=== PATIENT | female | born 1970 | race Caucasian/White ===

== ENCOUNTER 2019-10-01 21:37 | Emergency (ER) | payer MEDICAID ==
[~2019-10-01] VITALS: Ht 167.6 cm; Wt 77.6 kg
--- NOTE | 2019-10-01 23:04 | NUR ---
CALLED FOR TRIAGE NO ANSWER
--- NOTE | 2019-10-02 00:01 | NUR ---
PT AAOX4. BIBS FOR C/O SI W/ PLAN TO CUT HER WRIST, PLACED IN BED 11, ON MONITOR AND PULSE OX. VSS. PLACED IN GOWN. BELONIGNS PLACED IN LOCKER. 1:1 SITTER AT BEDSIDE. NO ACUTE DISTRESS NOTED.
[2019-10-02 00:13] LABS: APPEARANCE,URINE Clear (CLEAR); BILIRUBIN,URINE Negative (NEGATIVE); BLOOD, URINE Negative Ery/uL (NEGATIVE); COLOR,URINE Yellow (YELLOW); KETONES,URINE Negative (NEGATIVE); LEUKOCYTE ESTERASE ,URINE Negative (NEGATIVE); NITRITE, URINE Negative (NEGATIVE); PROTEIN,URINE Negative (NEGATIVE); UGLUCOSE Negative (NEGATIVE); UROBILINOGEN,URINE 0.2 EU/dL (0.2)
[2019-10-02 00:17] LABS: BASOPHILS # (AUTO) 0.1 /CMM (0.0-0.2); BASOPHILS % (AUTO) 1.1 % (0.0-2.0); EOSINOPHILS % (AUTO) 8.1 % (0.0-6.0); HEMATOCRIT 38 % (33-45); HEMOGLOBIN 12.5 g/dL (11.5-14.8); LYMPHOCYTES # (AUTO) 3.9 /CMM (0.8-4.8); LYMPHOCYTES % (AUTO) 44.9 % (20.0-44.0); MEAN CORPUSCULAR HGB CONC 33 g/dl (31.0-36.0); MEAN CORPUSCULAR VOLUME 95 fL (82-100); MONOCYTES # (AUTO) 0.8 /CMM (0.1-1.30); NEUTROPHILS # (AUTO) 3.2 /CMM (1.8-8.9); NEUTROPHILS % (AUTO) 36.9 % (43.0-81.0); PLATELET COUNT (AUTO) 352 /CMM (150-450); RED BLOOD CELL COUNT(AUTO) 3.97 MIL/uL (4.0-5.2); WHITE BLOOD COUNT (AUTO) 8.6 K/uL (4.3-11.0)
[2019-10-02 00:24] LABS: CALCIUM, SERUM 8.7 mg/dL (8.5-10.1); CARBON DIOXIDE 28 mmol/L (21-32); CHLORIDE 102 mmol/L (98-107); CREATININE 0.8 mg/dL (0.6-1.3); GLUCOSE 100 mg/dL (74-106); POTASSIUM 3.6 mmol/L (3.5-5.1); SODIUM SERUM 137 mmol/L (136-145); UREA NITROGEN, BLOOD 15 mg/dL (7-18)
[2019-10-02] MEDS ORDERED: OLANZAPINE 5 MG TABLET PO ONE (00:30)
[2019-10-02 00:31] LABS: ACETAMINOPHEN 0 ug/ml (10-30); ALANINE AMINOTRANSFERASE 20 U/L (12-78); ALBUMIN 3.2 g/dL (3.4-5.0); ALCOHOL, BLOOD < 3 mg/dL (0-0); ALKALINE PHOSPHATASE 82 U/L (46-116); ASPARTATE AMINOTRANSFERASE 14 U/L (15-37); BILIRUBIN,DIRECT 0.1 mg/dL (0.0-0.2); BILIRUBIN,TOTAL 0.4 mg/dL (0.2-1.0); SALICYLATE 5.1 mg/dL (2.8-20.0); TOTAL PROTEIN, SERUM 6.5 g/dL (6.4-8.2)
--- NOTE | 2019-10-02 01:58 | NUR ---
Patient is resting comfortably in bed with eyes closed. Easily aroused. VSS.
[2019-10-02] MEDS ORDERED: OLANZAPINE 5 MG TABLET ONE (02:07)
--- NOTE | 2019-10-02 03:07 | NUR ---
Patient is resting comfortably in bed. Easily aroused. VSS.
--- NOTE | 2019-10-02 04:23 | NUR ---
Patient asleep. VSS.
--- NOTE | 2019-10-02 07:15 | NUR ---
PT ASLEEP ON BED EASILY AROUSABLE, NOT IN RESPIRATORY DISTRESS, V/S STABLE, AWAITING ROOM FROM [facility] FOR [facility]OL[facility]CH ADMISSION.
--- NOTE | 2019-10-02 10:45 | NUR ---
SEQUINS SLINGER was informed by LINDA Abraham to follow up with Anil at [facility] regarding placement. SEQUINS SLINGER contacted Anil who informed SEQUINS SLINGER he spoke with intake who notified him that no clinicals were faxed to intake. SEQUINS SLINGER re-faxed clinicals to [facility] intake. Anil confirmed a bed will be available, for the pt.
--- NOTE | 2019-10-02 12:42 | NUR ---
JACLYN received a call from Sravani at [facility] requesting a test on the pt. JACLYN contacted Manuel in and requested a UA.
--- NOTE | 2019-10-02 13:53 | NUR ---
INFRASTRUCTURE SOFTWARE ENGINEER faxed UA results to [facility] intake.
--- NOTE | 2019-10-02 14:24 | NUR ---
ARBORIST received a call from [facility] at [facility]. Pt has been accepted to [facility] [address] Levine/Dr. Masters. Call report to [phone]. ED updated with aforementioned information.
--- NOTE | 2019-10-02 14:43 | NUR ---
SOWMYA BELLO [id number] TRIP#[id number] Addendum: 10/02/19 at 1644 by STANFORD Simon BELLO [phone]
[2019-10-02 17:20] VITALS: BP 120/71
--- NOTE | 2019-10-02 17:21 | NUR ---
REPORT GIVEN TO KARIN ORDAZ OF [facility].
--- NOTE | 2019-10-02 20:03 | NUR ---
report given to library circulation assistant
== END 2019-10-02 21:07 | disposition short-term general hospital (02) ==
LOC: ER 21:40
DX: R45.851 Suicidal ideations (principal); F31.9 Bipolar disorder, unspecified; F17.200 Nicotine dependence, unspecified, uncomplicated
CPT/HCPCS: 36415; 80048; 80076; 80305; 80307; 80329; 81001; 84703; 85025; 99285; G0480; 81000-TC